=== PATIENT | male | born 1980 | race Caucasian/White ===

== ENCOUNTER 2016-04-02 23:50 | Emergency (ER) | payer MEDICAID ==
[~2016-04-02] VITALS: Ht 175.3 cm; Wt 77.7 kg
[2016-04-03 00:03] VITALS: BP 132/101
--- NOTE | 2016-04-03 00:09 | NUR ---
PT TAKEN TO BED 4
--- NOTE | 2016-04-03 00:24 | NUR ---
PT PRESENT TO ER WITH C/O LEFT SIDE FACE PAIN RADIATED TO LEFT NECK & LEFT ARM STARTING LAST NIGHT SCALING 10/03. DENIES ANY N/V
--- NOTE | 2016-04-03 00:25 | NUR ---
Patient being evaluated by DR. SANCHEZ at bedside.
[2016-04-03] MEDS ORDERED: ALUMINUM HYD/MAG/SIMETHICONE 30 ML UDC PO ONE (00:40)
[2016-04-03] MEDS ORDERED: BELLADONNA/PHENOBARBITAL 5 ML ORASYR PO ONE (00:40)
[2016-04-03] MEDS ORDERED: LIDOCAINE VISCOUS 2% 20 ML UDC PO ONE (00:40)
[2016-04-03] MEDS ORDERED: KETOROLAC 60 MG/2 ML VIAL IM ONE (00:40)
--- NOTE | 2016-04-03 00:50 | NUR ---
X-Ray at bedside.
[2016-04-03 01:55] VITALS: BP 130/66
--- NOTE | 2016-04-03 01:55 | NUR ---
Patient discharged with v/s stable. Written and verbal after care instructions given and explained. Patient alert, oriented and verbalized understanding of instructions. Ambulatory with steady gait. All questions addressed prior to discharge. ID band removed. Patient advised to follow up with PMD. Rx of TRAMADOL HYDROCHLORIDE 50MG PO, OMEPRAZOLE 40MG PO given. Patient educated on indication of medication including possible reaction and side effects. Opportunity to ask questions provided and answered.
== END 2016-04-03 01:55 | disposition home or self-care (01) ==
LOC: MED 23:50
DX: K29.70 Gastritis, unspecified, without bleeding (principal); M25.512 Pain in left shoulder
CPT/HCPCS: 73030; 96372; 99284; J1885; Q0092

== ENCOUNTER 2016-07-16 00:35 | Emergency (ER) | payer MEDICAID ==
[~2016-07-16] VITALS: Ht 175.3 cm; Wt 75.3 kg
[2016-07-16 00:46] VITALS: BP 110/71
--- NOTE | 2016-07-16 01:05 | NUR ---
PT TAKEN TO BED 4 Addendum: 07/16/16 at 0106 by LARISSA PT TAKEN TO BED 5
[2016-07-16 01:10] VITALS: BP 110/71
--- NOTE | 2016-07-16 01:10 | NUR ---
PATIENT PRESENTS TO ED WITH C/O ABD PAIN AND DIARRHEA. RASH ON LEFT SHOULDER, WEAKNESS AND FEVER AT HOME. PT IS AAOX4 WITH EVEN AND STEADY GAIT; LUNGS CLEAR BL; HR EVEN AND REGULAR; PT DENIES ANY CP, SOB, OR COUGH AT THIS TIME; PATIENT STATES PAIN OF 8/10 AT THIS TIME; VSS; PATIENT POSITIONED FOR COMFORT; HOB ELEVATED; BEDRAILS UP X2; BED DOWN. ER MD MADE AWARE OF PT STATUS.
--- NOTE | 2016-07-16 01:43 | NUR ---
Dr. Fam evaluating patient at bedside.
--- NOTE | 2016-07-16 01:47 | NUR ---
Patient discharged with v/s stable. Written and verbal after care instructions given and explained. Patient alert, oriented and verbalized understanding of instructions. Ambulatory with steady gait. All questions addressed prior to discharge. ID band removed. Patient advised to follow up with PMD. Rx of LOTRIMIN 1% TOPICAL CREAM given. Patient educated on indication of medication including possible reaction and side effects. Opportunity to ask questions provided and answered.PT STABLE AT THIS TIME. PT REFUSED TO TAKE RX, OR ANY DISCHARGE PAPPER WORK, OR HAVE HIS VSS UPDATE. DR SANCHEZ BACK AT BEDSIDE TO ANSWER ALL THE PATIENT QUESTIONS
== END 2016-07-16 01:47 | disposition home or self-care (01) ==
LOC: MED 00:35
DX: M54.41 Lumbago with sciatica, right side (principal); R21 Rash and other nonspecific skin eruption; R19.7 Diarrhea, unspecified; L29.9 Pruritus, unspecified

== ENCOUNTER 2018-08-04 22:30 | Emergency (ER) | payer MEDICAID ==
[~2018-08-04] VITALS: Ht 172.7 cm; Wt 76.2 kg
[2018-08-04 22:40] VITALS: BP 132/65
--- NOTE | 2018-08-04 22:48 | NUR ---
DISCHARGE PAPERS GIVEN TO PT. STATES 5/10 PAIN BUT TOLLERABLE. AFEBRILE WITH VSS. RX OF IBUPROFEN AND AUGMENTIN GIVEN. SIDE EFFECTS EXPLAINED. INSTRUCTED TO F/U WITH DENTAL AND WHEN TO RETURN TO ER. PT VERBALLIZED UNDERSTANDING OF DC INSTRUCTIONS. ALL QUESTIONS ANSWERED.
--- NOTE | 2018-08-04 22:48 | NUR ---
PT TAKEN TO BED 1
--- NOTE | 2018-08-04 22:48 | NUR ---
Note alphonse in EDM - 08/05/18 at 0139 by MED 37 Y/O MALE C/O 1CM LAC TO POSTERIOR LEFT 3RD DIDGIT X1 HR. PT WORKS WITH [employer]. PRESENTS TO ED FOR LAC REPAIR AND TDAP. STATES 2 PAIN. AFEBRILE WITH VSS. CMS INTACT BILAT UPPER EXTREMITIES. ER AWARE. CONTINUE TO MONITOR.
[2018-08-04] MEDS ORDERED: IBUPROFEN 800 MG TAB PO ONE (23:05)
[2018-08-04] MEDS ORDERED: AMOXIL/CLAVULANATE 875/125 MG 1 TAB PO ONE (23:05)
[2018-08-04 23:50] VITALS: BP 128/70
--- NOTE | 2018-08-04 23:50 | NUR ---
Patient discharged with v/s stable. Written and verbal after care instructions given and explained. Patient alert, oriented and verbalized understanding of instructions. Ambulatory with steady gait. All questions addressed prior to discharge. ID band removed. Patient advised to follow up with PMD. Rx of IBUPROFEN 800MG, AUGMENTIN 875 MG given. Patient educated on indication of medication including possible reaction and side effects. Opportunity to ask questions provided and answered.
--- NOTE | 2018-08-05 01:00 | NUR ---
Note alphonse in EDM - 08/05/18 at 0139 by MEDJ LAC CLEANSED WITH NS AND IODINE PREP SOLUTION. DRYED. COVERED WITH DERMABOND PER DR IVANNA RAPP. PT TOLLERATED WELL. CONTINUE TO MONITOR.
== END 2018-08-04 23:50 | disposition home or self-care (01) ==
LOC: MED 22:30
DX: S02.5XXA Fracture of tooth (traumatic), initial encounter for closed fracture (principal); K04.7 Periapical abscess without sinus; X58.XXXA Exposure to other specified factors, initial encounter; Y93.89 Activity, other specified; Y92.89 Other specified places as the place of occurrence of the external cause; Y99.8 Other external cause status
CPT/HCPCS: 99283

== ENCOUNTER 2020-09-02 10:14 | Emergency (ER) | payer MEDICAID ==
[~2020-09-02] VITALS: Ht 175.3 cm; Wt 77.1 kg
[2020-09-02 10:24] VITALS: BP 126/87
[2020-09-02] MEDS ORDERED: BENC TP (10:52)
[2020-09-02] MEDS ORDERED: CETI10SG1 PO (10:52)
[2020-09-02 11:06] VITALS: BP 126/87
== END 2020-09-02 11:07 | disposition home or self-care (01) ==
LOC: MED 10:14
DX: R21 Rash and other nonspecific skin eruption (principal)
CPT/HCPCS: 99282

== ENCOUNTER 2021-04-21 12:21 | Emergency (ER) | payer MEDICAID ==
[~2021-04-21] VITALS: Ht 175.3 cm; Wt 86.2 kg
[~2021-04-21 12:21] MED LIST: BENC TP; CETI10SG1 PO
[2021-04-21 12:30] VITALS: BP 136/84
--- NOTE | 2021-04-21 12:36 | NUR ---
Dr. Kline is evaluating pt at bedside
--- NOTE | 2021-04-21 12:38 | NUR ---
40 y/o male BIB self from home c/o nose pain and nausea that started 1 week ago, pain worsened over time and radiates to forehead and occipital area. once headache started, pt started having right eye pain, redness and blurry vision. states pain is 9/10. denies loc, syncope, or head/neck injury. Bed locked in lowest position, side rails x 1. pmh: denies nka med: tylenol
[2021-04-21] MEDS ORDERED: diphenhydrAMINE 50 MG/ML VIAL IVP ONE (12:45)
[2021-04-21] MEDS ORDERED: KETOROLAC 15 MG/ML VIAL IVP ONE (12:45)
[2021-04-21] MEDS ORDERED: NACL 0.9% 1,000 ML IV ONE (12:45)
[2021-04-21] MEDS ORDERED: ACETAMINOPHEN EXTRA STRENGTH 500 MG TAB PO ONE (12:45)
[2021-04-21] MEDS ORDERED: PROCHLORPERAZINE 10 MG/2 ML VIAL IVP ONE (12:45)
--- NOTE | 2021-04-21 12:46 | NUR ---
RAD at bedside
--- NOTE | 2021-04-21 12:58 | NUR ---
Pt transported to CT by
--- NOTE | 2021-04-21 13:04 | NUR ---
PT BACK FROM CT. PT PROVIDED WITH BLANKET FOR COMFORT.
--- NOTE | 2021-04-21 13:04 | NUR ---
Blood sample collected, walked to lab and handed to [facility].
--- NOTE | 2021-04-21 13:10 | NUR ---
EMT at bedside for EKG
[2021-04-21 13:58] LABS: BASOPHILS # (AUTO) 0.1 K/uL (0.00-0.22); BASOPHILS % (AUTO) 0.9 % (0.0-2.0); EOSINOPHILS # (AUTO) 0.7 K/uL (0-0.4); HEMATOCRIT 45.2 % (36-52); HEMOGLOBIN 15.6 g/dL (12.0-18.0); LYMPHOCYTES # (AUTO) 1.4 K/uL (2.0-11.5); LYMPHOCYTES % (AUTO) 25.7 % (20.5-51.1); MEAN CORPUSCULAR HEMOGLOBIN 32 pg (27-31); MEAN CORPUSCULAR HGB CONC 35 g/dL (33-37); MEAN CORPUSCULAR VOLUME 92.8 fL (80-94); MONOCYTES # (AUTO) 0.6 K/uL (0.8-1.0); MONOCYTES % (AUTO) 11.1 % (1.7-9.3); NEUTROPHILS # (AUTO) 2.8 K/uL (1.8-7.7); NEUTROPHILS % (AUTO) 50.3 % (42.2-75.2); PLATELET COUNT (AUTO) 243 K/uL (140-450); RED BLOOD CELL COUNT(AUTO) 4.87 MIL/uL (4.20-6.10); RED CELL DISTRIBUTION WIDTH 12.9 % (11.6-13.7); WHITE BLOOD COUNT (AUTO) 5.5 K/uL (4.8-10.8)
--- NOTE | 2021-04-21 14:10 | NUR ---
Pt reports + relief to pain; 3/10 at this time; denies nausea/vomiting. All pt needs met. VSS. Respirations even/unlabored.
[2021-04-21 14:26] VITALS: BP 133/82
--- NOTE | 2021-04-21 14:28 | NUR ---
Pt ambulated to restroom with steady/even gait.
[2021-04-21 14:34] LABS: ALBUMIN 4.3 g/dL (3.4-5.0); ANION GAP 13.8 (8-16); CREATININE 0.9 mg/dL (0.6-1.3); POTASSIUM 3.8 mmol/L (3.5-5.1); TOTAL BILIRUBIN 0.9 mg/dL (0.0-1.0)
--- NOTE | 2021-04-21 14:35 | NUR ---
Pt returned from restroom and placed back onto monitoring manager. Bed locked in lowest position, side rails x 1.
--- NOTE | 2021-04-21 14:50 | NUR ---
IV removed, catheter intact and site benign. Applied folded 2x2 gauze and tape to stop bleeding.
--- NOTE | 2021-04-21 14:53 | NUR ---
Patient discharged with v/s stable. Written and verbal after care instructions given and explained. Patient verbalized understanding. Ambulatory with steady gait. All questions addressed prior to discharge. Advised to follow up with PMD.
== END 2021-04-21 14:53 | disposition home or self-care (01) ==
LOC: MED 12:21
DX: G43.909 Migraine, unspecified, not intractable, without status migrainosus (principal)
CPT/HCPCS: 36415; 70450; 71045; 80053; 84484; 85025; 93005; 96361; 96374; 96375; 99285; J0780; J1200; J1885; J7030

== ENCOUNTER 2022-03-13 20:56 | Emergency (ER) | payer MEDICAID ==
[~2022-03-13] VITALS: Ht 175.3 cm; Wt 81.6 kg
[2022-03-13 21:01] VITALS: BP 131/83
--- NOTE | 2022-03-13 21:05 | NUR ---
TO BED 9 FROM TRIAGE
--- NOTE | 2022-03-13 21:30 | NUR ---
pt on monitor, resting with HOB elevated
--- NOTE | 2022-03-13 21:30 | NUR ---
41 Y/O M presents with dizziness x1 week. Pt states some nausea but denies VD. pt stated this has happened before, but has not seen doctor. pt is A&Ox4, denies taking any blood thinners. pmh- pt denies NKA
--- NOTE | 2022-03-13 22:43 | NUR ---
ER at bedside
--- NOTE | 2022-03-13 22:43 | NUR ---
Dr. Gonzáles examining patient.
[2022-03-13 22:53] VITALS: BP 126/84
[2022-03-13] MEDS: MECLIZINE 25 MG TAB PO ONE (23:15)
[2022-03-13] MEDS ORDERED: MECL-303 PO (23:42)
--- NOTE | 2022-03-13 23:50 | NUR ---
Patient discharged with v/s stable. Written and verbal after care instructions given and explained. Patient alert, oriented and verbalized understanding of instructions. Ambulatory with steady gait. All questions addressed prior to discharge. ID band removed. Patient advised to follow up with PMD. Rx of Antivert given. Opportunity to ask questions provided and answered.
== END 2022-03-13 23:50 | disposition home or self-care (01) ==
LOC: MED 20:56
DX: R42 Dizziness and giddiness (principal); R51.9 Headache, unspecified; Z79.899 Other long term (current) drug therapy
CPT/HCPCS: 99282; J8597

== ENCOUNTER 2022-07-29 15:20 | Emergency (ER) | payer MEDICAID ==
[~2022-07-29] VITALS: Ht 175.3 cm; Wt 87.5 kg
[~2022-07-29 15:20] MED LIST changes: +MECL-303 PO
[2022-07-29 15:26] VITALS: BP 124/91
[2022-07-29] MEDS ORDERED: ONDA-188 SL (16:04)
[2022-07-29] MEDS ORDERED: MECL-231 PO (16:04)
[2022-07-29] MEDS ORDERED: MECLIZINE 25 MG TAB PO ONE (16:05)
[2022-07-29] MEDS ORDERED: ONDANSETRON 4 MG ODT PO ONE (16:05)
--- NOTE | 2022-07-29 17:14 | NUR ---
Patient discharged with v/s stable. Written and verbal after care instructions given and explained. Patient alert, oriented and verbalized understanding of instructions. Ambulatory with steady gait. All questions addressed prior to discharge. ID band removed. Patient advised to follow up with PMD. Rx of ANTIVERT, ZOFRAN given. Patient educated on indication of medication including possible reaction and side effects. Opportunity to ask questions provided and answered.
== END 2022-07-29 17:13 | disposition home or self-care (01) ==
LOC: MED 15:20
DX: R42 Dizziness and giddiness (principal); R11.0 Nausea; Z79.899 Other long term (current) drug therapy
CPT/HCPCS: 93005; 99283; J8597; Q0162